=== PATIENT | female | born 2000 ===

== ENCOUNTER 2021-07-04 16:31 | Emergency (ER) | payer OTHER, SELFPAY ==
[2021-07-04 16:52] VITALS: BP 130/82; PULSE 110; O2SAT 98
[2021-07-04 16:59] VITALS: BP 118/78; PULSE 81; RESP 16; TEMP 37.1; O2SAT 100; BMI 26.1
[2021-07-04 16:59] LABS: Glucose, Whole Blood 123 mg/dL (60-115)
--- NOTE | 2021-07-04 17:52 | ED.SYNCOPE ---
HPI - Syncope General Chief Complaint: Seizure Stated Complaint: seizure Time Seen by Provider: 07/04/21 17:47 Source: patient Mode of arrival: ambulatory Limitations: no limitations History of Present Illness HPI narrative: Patient with history of palpitation episodes followed by near-syncope since 02/24 already been followed by respiratory care practitioner had Holter monitoring not life-threatening advised to do the Valsalva maneuver when this happens also patient has some anxiety lately today while at work patient has similar episode and she felt lightheaded with cold sweats and almost passed out along with palpitation no seizure activity patient back to normal and on arrival blood sugar was 123 blood pressure stable normal orthostatic Related Data Home Medications Medication Instructions Recorded Confirmed No Known Home Meds 11/14/20 11/14/20 Allergies Allergy/AdvReac Type Severity Reaction Status Date / Time No Known Drug Allergies Allergy Mild NONE Verified 11/14/20 08:36 [NO KNOWN DRUG ALLERGIES] Review of Systems Review of Systems: Yes all other systems are reviewed and are negative [facility] Past Medical History Medical History Family history of thyroid disease Family History Family History Father Arthritis Mother Arthritis Maternal Grandmother Heart disease Hypertension Paternal Grandfather Colon cancer Paternal Grandmother Heart disease Maternal Grandfather Stroke Social History Social History Alcohol intake: never Advance Directives: No Advance Directives Information Provided: Yes Physical Exam Vital Signs: Vital Signs: Last Vital Signs Temp 98.7 F 07/04/21 16:59 Pulse 100 07/04/21 18:09 Resp 16 07/04/21 16:59 BP 116/73 07/04/21 18:09 Pulse Ox 100 07/04/21 16:59 BMI result Body Mass Index 26.1 Appearance: Alert. Oriented X3. No acute distress. Eyes: No pallor or icterus ENT: Pharynx normal. Oral Mucosa moist Neck: Normal inspection. Neck supple. CVS: Normal heart rate and rhythm. Pulses normal. No murmur rub or gallop Respiratory: No respiratory distress. Equal air entry bilateral, Abdomen: Soft and nontender. Bowel sounds are present, Skin: Skin warm and dry. Normal skin color. Normal skin turgor. Extremities: No lower extremity edema. No calf tenderness Neuro: Oriented X 3. No motor deficit. No sensory deficit.No cerebellar signs , cranial nerves II-XII intact MDM - Syncope Lab Data Attestation: I reviewed the patient's lab results. Labs: Lab Results 07/04/21 Range/Units 16:55 POC Glucose 123 H (60-115) mg/dL ECG Data Attestation: I personally reviewed and interpreted this ECG as follows: Interpretation: Normal sinus rhythm heart rate 76 beats per minute normal interval normal axis no acute STT wave changes impression normal EKG Discharge Plan Discharge Clinical Impression: Vasovagal near syncope Patient Disposition: Home, Self-Care Instructions: Near Syncope (ED) Additional Instructions: Care as advised, drink plenty of fluids follow with respiratory care practitioner for palpitation episodes Prescriptions: No Action No Known Home Meds RF: 0
--- NOTE | 2021-07-04 17:54 | ECG_ITS ---
Test Reason : SYNCOPE Blood Pressure : / mmHG Vent. Rate : 076 BPM Atrial Rate : 076 BPM P-R Int : 108 ms QRS Dur : 072 ms QT Int : 392 ms P-R-T Axes : 022 072 050 degrees QTc Int : 441 ms Sinus rhythm with short NH Otherwise normal ECG When compared with ECG of 23-DEC-2019 14:41, No significant change was found Referred By: Silvio Castrejon Electronically Signed By:MARK KIM
[2021-07-04 18:06] VITALS: BP 115/71; PULSE 76
[2021-07-04 18:08] VITALS: BP 120/77; PULSE 88
[2021-07-04 18:09] VITALS: BP 116/73; PULSE 100
== END 2021-07-04 19:11 | disposition home or self-care (01) ==
PROVIDERS: Emergency Provider Internal Medicine
DX: R55 Syncope and collapse (principal); R56.9 Unspecified convulsions
CPT/HCPCS: 82947; 93005; 99283

== ENCOUNTER 2021-09-24 12:47 | Outpatient (REF) | payer OTHER, SELFPAY | END 2021-09-24 12:48 | disposition home or self-care (01) | LOC: HO.LAB 12:47 | PROVIDERS: PCP Internal Medicine; Visit Provider Internal Medicine | DX: Z83.49 Family history of other endocrine, nutritional and metabolic diseases (principal) | CPT/HCPCS: 36415; 84443 ==

== ENCOUNTER 2021-10-15 09:39 | Outpatient (REF) | payer OTHER, SELFPAY ==
--- NOTE | ~2021-10-15 | US_ITS ---
EXAMINATION: US THYROID CLINICAL INFORMATION: Dysphagia, unspecified. COMPARISON: None TECHNIQUE: Linear transducer grayscale and color Doppler examination with attention to the region of the thyroid. FINDINGS: SIZE: Measurements of the thyroid lobes and nodules are given in sagittal, anteroposterior and transverse dimensions respectively. Right Thyroid Lobe: 4.1 x 1.4 x 2.0 cm, volume 5.9 mL. Parenchyma: The gland echotexture is homogeneous. Thyroid vascularity is normal. Left Thyroid Lobe: 4.1 x 1.3 x 1.6 cm, volume 4.3 mL. Parenchyma: The gland echotexture is homogeneous. Thyroid vascularity is normal. Isthmus: 0.2 cm in maximum AP dimension. Estimated total number of nodules greater than or equal to 1 cm: 0. Hat Finisher nodules are described as follows: 1. Location: Left mid pole. Size: 0.4 x 0.2 x 0.3 cm, volume 0.012 mL. Nodule characteristics: Composition: Solid/almost completely solid (2). Echogenicity: Hypoechoic (2). Shape: Not taller than wide (0). Margins: Smooth (0). Echogenic Foci: None (0). ACR TI-RADS total points: 4 ACR TI-RADS category: 4 2. Location: Left lower pole. Size: 0.3 x 0.2 x 0.3 cm, volume 0.007 mL. Nodule characteristics: Composition: Solid/almost completely solid (2). Echogenicity: Hypoechoic (2). Shape: Not taller than wide (0). Margins: Smooth (0). Echogenic Foci: None (0). ACR TI-RADS total points: 4 ACR TI-RADS category: 4 NODES: No lymphadenopathy is seen in the tissue surrounding the thyroid gland. US/US thyroid IMPRESSION: Normal-sized thyroid gland. Two small left thyroid nodules. These do not meet TI RADS criteria for ultrasound follow-up or fine-needle aspiration. ACR TI-RADS RECOMMENDATION REFERENCE: Ultrasound-guided fine-needle aspiration, followup ultrasound, no further follow up. * TR1 (0 point) and TR 2 (2 points): No FNA or follow up * TR3 (3 points): FNA if more than or equal to 2.5 cm in maximum dimension, followup ultrasound in 1, 3 and 5 years if 1.5 to 2.4 cm in maximum dimension. * TR4 (4-6 points): FNA if more than or equal to 1.5 cm in maximum dimension, followup ultrasound in 1, 2, 3 and 5 years if 1 to 1.4 cm in maximum dimension. * TR5 (more than or equal to 7 points): FNA if more than or equal to 1 cm in maximum dimension, followup ultrasound every year for 5 years if 0.5 to 0.9 cm in maximum dimension. * TR3, TR4 or TR5 nodules that are below the size threshold for follow up receive no follow up.
== END 2021-10-15 09:40 | disposition home or self-care (01) ==
LOC: HO.US 09:39
PROVIDERS: Visit Provider Internal Medicine
DX: R13.10 Dysphagia, unspecified (principal)
CPT/HCPCS: 76536

== ENCOUNTER 2021-11-03 19:38 | Emergency (ER) | payer OTHER, SELFPAY ==
--- NOTE | ~2021-11-03 | CT_ITS ---
EXAMINATION: CT HEAD WITHOUT CONTRAST CT CERVICAL SPINE WITHOUT CONTRAST CLINICAL INFORMATION: Head injury. Persistent dizziness and forgetfulness COMPARISON: CT head dated 06/17/2011 TECHNIQUE: Multidetector CT imaging of the head and cervical spine was performed without the use of intravenous contrast. Multiplanar reformats are reviewed. This CT examination was performed using dose optimization techniques as appropriate, variously including the following: *Automated exposure control *Adjustment of mA and/or kV according to patient size (this includes techniques or standardized protocols for targeted exams where dose is matched to indication/reason for exam; i.e. extremities or head) *Use of iterative reconstruction technique DLP: 876 mGy-cm. FINDINGS: There is no evidence of acute intracranial hemorrhage or territorial infarction. No abnormal mass effect or midline shift is seen. [place] to white matter differentiation is well preserved. No extra-axial fluid collections are identified. The ventricles are normal in size. There is no abnormal attenuation within the brain parenchyma. The osseous structures and soft tissues are normal. The mastoid air cells and visualized portions of the paranasal sinuses are well-aerated. Atlantooccipital alignment is maintained. The vertebral bodies and posterior elements align normally. No acute fracture or subluxation. Vertebral body heights are maintained. No significant degenerative changes are appreciated. No central canal or foraminal narrowing. The paraspinal soft tissues are unremarkable. The imaged lung apices are clear CT/CT cervical spine wo con IMPRESSION: No acute intracranial pathology. No cervical spine fracture or malalignment.
--- NOTE | ~2021-11-03 | CT_ITS ---
EXAMINATION: CT HEAD WITHOUT CONTRAST CT CERVICAL SPINE WITHOUT CONTRAST CLINICAL INFORMATION: Head injury. Persistent dizziness and forgetfulness COMPARISON: CT head dated 06/17/2011 TECHNIQUE: Multidetector CT imaging of the head and cervical spine was performed without the use of intravenous contrast. Multiplanar reformats are reviewed. This CT examination was performed using dose optimization techniques as appropriate, variously including the following: *Automated exposure control *Adjustment of mA and/or kV according to patient size (this includes techniques or standardized protocols for targeted exams where dose is matched to indication/reason for exam; i.e. extremities or head) *Use of iterative reconstruction technique DLP: 876 mGy-cm. FINDINGS: There is no evidence of acute intracranial hemorrhage or territorial infarction. No abnormal mass effect or midline shift is seen. [place] to white matter differentiation is well preserved. No extra-axial fluid collections are identified. The ventricles are normal in size. There is no abnormal attenuation within the brain parenchyma. The osseous structures and soft tissues are normal. The mastoid air cells and visualized portions of the paranasal sinuses are well-aerated. Atlantooccipital alignment is maintained. The vertebral bodies and posterior elements align normally. No acute fracture or subluxation. Vertebral body heights are maintained. No significant degenerative changes are appreciated. No central canal or foraminal narrowing. The paraspinal soft tissues are unremarkable. The imaged lung apices are clear CT/CT head/brain wo con IMPRESSION: No acute intracranial pathology. No cervical spine fracture or malalignment.
[2021-11-03 19:40] VITALS: BP 118/76; PULSE 86; RESP 18; TEMP 36.9; O2SAT 100; BMI 23.1
[2021-11-03 20:12] LABS: Appearance Urine CLEAR; Color Urine YELLOW; Glucose Urine UA NEG (NEG); Leukocyte Esterase Urine 2+ (NEG); Nitrite Urine NEG (NEG); UACC Culture Trigger YES; Urine Blood NEG (NEG); Urine Ketones 5 MG/DL (NEG); Urine Protein NEG (NEG-TRACE)
[2021-11-03 20:41] LABS: Bacteria Urine 2+ /LPF; Squamous Epithelial Cell Urine 1+ /LPF; UACC CULT YES
[2021-11-03 21:12] LABS: Urine Pregnancy NEGATIVE (NEGATIVE)
[2021-11-03 21:13] LABS: UPreg QC Valid YES
--- NOTE | 2021-11-03 22:10 | ED.HEATRA ---
HPI - Head Injury General Chief complaint: Head Injury Stated complaint: head inj/concussion Time Seen by Provider: 11/03/21 20:25 History of Present Illness HPI Narrative: Patient is a 21-year-old female status post bumping her head complaining of pain to her head. Complaining of pain to her neck. Denies any chance of being . No fever no chills. No changes in vision. Patient from home. No focal weakness. No history of seizures. No history of being on blood thinners. Patient from home. Related Data Previous Rx's Medication Instructions Recorded ibuprofen 400 mg tablet 400 mg PO Q6H PRN #20 tab 11/03/21 Allergies Allergy/AdvReac Type Severity Reaction Status Date / Time No Known Drug Allergies Allergy Mild NONE Verified 11/14/20 08:36 [NO KNOWN DRUG ALLERGIES] Review of Systems Review of Systems: Positive head injury Yes all other systems are reviewed and are negative [facility] Past Medical History Attestation statement: The following information was validated with the patient. Medical History Family history of thyroid disease Family History Family History Father Arthritis Mother Arthritis Maternal Grandmother Heart disease Hypertension Paternal Grandfather Colon cancer Paternal Grandmother Heart disease Maternal Grandfather Stroke Social History Social History Alcohol intake: never Advance Directives: No Advance Directives Information Provided: Yes Physical Exam Vital Signs: Vital Signs: Last Vital Signs Temp 98.4 F 11/03/21 19:40 Pulse 86 11/03/21 19:40 Resp 18 11/03/21 19:40 BP 118/76 11/03/21 19:40 Pulse Ox 100 11/03/21 19:40 BMI result Body Mass Index 23.1 Appearance: Alert. Oriented X3. No acute distress. Eyes: Pupils equal, round and reactive to light. ENT: Pharynx normal. Neck: Normal inspection. Neck supple. No lymph nodes noted. No crepitus CVS: Normal heart rate and rhythm. Pulses normal. Normal S1 and S2 Respiratory: No respiratory distress. Breath sounds normal. No Wheezing. No rales Abdomen: Soft and nontender. No rigidity. No distention. good BS x4 Skin: Skin warm and dry. Normal skin color. Normal skin turgor. Extremities: No lower extremity edema. Neurovascular intact to all extremities. No Lacerations. No Rash Neuro: Oriented X 3. No motor deficit. No sensory deficit. Moving all extermities. No slurred speech MDM - Head Injury MDM Narrative Medical decision making narrative: Well-appearing no acute distress. CT scan of the head and C-spine were both grossly negative for any acute evidence of bleeding fracture or malalignment. Will have patient follow head injury precaution. test was negative. In stable condition. Lab Data Labs: Lab Results 11/03/21 11/03/21 Range/Units 19:58 19:58 Urine Color YELLOW Urine Appearance CLEAR Urine pH 7.0 (5.0-8.0) Ur Specific [place] 1.020 (1.005-1.025) Urine Protein NEG (NEG-TRACE) MG/DL Urine Glucose (UA) NEG (NEG) MG/DL Urine Ketones 5 (NEG) MG/DL Urine Blood NEG (NEG) Urine Nitrite NEG (NEG) Ur Leukocyte Esterase 2+ H (NEG) Urine RBC 1-4 (0) /HPF Urine WBC 5-9 H (0-4) /HPF Ur Squamous Epith Cells 1+ /LPF Urine Bacteria 2+ /LPF Urine Test NEGATIVE (NEGATIVE) Discharge Plan Discharge Clinical Impression: Closed head injury Patient Disposition: Home, Self-Care Instructions: Head Injury (ED) Prescriptions: New ibuprofen 400 mg tablet 400 mg PO Q6H PRN (Reason: pain) Qty: 20 0RF Referrals: Physician,Nonstaff [Primary Care Provider] - (Follow-up with her doctor on outpatient basis. Motrin for pain. You may take 1-2 tablets of 200 mg Motrin every 4-6 hours.)
== END 2021-11-03 22:34 | disposition home or self-care (01) ==
PROVIDERS: Emergency Provider Emergency Medicine Emergency Medical Services
DX: S06.0X9A Concussion with loss of consciousness of unspecified duration, initial encounter (principal); G44.309 Post-traumatic headache, unspecified, not intractable; M54.2 Cervicalgia; X58.XXXA Exposure to other specified factors, initial encounter; Y93.9 Activity, unspecified; Y92.9 Unspecified place or not applicable; Y99.9 Unspecified external cause status; Z79.899 Other long term (current) drug therapy
CPT/HCPCS: 70450; 72125; 81001; 81025; 87086; 99283; 99284

== ENCOUNTER 2021-11-22 13:04 | Outpatient (REF) | payer OTHER, SELFPAY ==
--- NOTE | ~2021-11-22 | MR_ITS ---
EXAMINATION: MRI OF THE BRAIN WITHOUT CONTRAST CLINICAL INFORMATION: New persistent daily headache. COMPARISON: CT scan of the head 11/03/2021.. TECHNIQUE: MRI of the brain was obtained using routine sequences without contrast. FINDINGS: No diffusion abnormalities are identified to suggest an acute or subacute infarct. No mass effect or midline shift is seen. The ventricles and sulci appear normal. Brain parenchymal signal is unremarkable. No extra-axial fluid collections are seen. The brainstem and cerebellum are normal. No pathologic magnetic susceptibility artifact is identified on the gradient refocused acquisition. The craniovertebral junction, marrow signal, and midline structures are normal. The major intracranial flow-voids at the level of the [place] are preserved. The dural venous sinus flow-voids are maintained. The nasal septum is deviated to the right and there is a prominent right-sided bony nasal septal spur. The mastoid air cells and paranasal sinuses are well-aerated. MR/MR head/brain wo con IMPRESSION: 1. There are no acute bleeds or infarcts. No masses are demonstrated.
== END 2021-11-22 13:05 | disposition home or self-care (01) ==
LOC: HO.MRI 13:04
PROVIDERS: Visit Provider Internal Medicine
DX: S06.0X9A Concussion with loss of consciousness of unspecified duration, initial encounter (principal); G44.52 New daily persistent headache (NDPH)
CPT/HCPCS: 70551

== ENCOUNTER 2022-12-26 09:48 | Outpatient (REF) | payer OTHER, SELFPAY ==
[2022-12-26 10:02] LABS: MANUAL DIFF FLAG NO
[2022-12-26 10:42] LABS: Basophils Percent Auto 0.6 % (0-2); Eosinophils Percent Auto 0.8 % (0-4); Hematocrit 40.1 % (37.0-47.0); Hemoglobin 13.3 g/dl (12.0-16.0); Imm Gran Abs Auto 0.01 X10*3/uL (0.00-0.03); Imm Gran Pct Auto 0.2 % (0.0-0.4); Lymphocytes Absolute Auto 1.7 X10*3/uL (1.2-4.9); Mean Corpuscular HGB Conc 33.2 g/dl (31.0-35.0); Mean Corpuscular Hemoglobin 30.5 pg (27.0-33.0); Mean Platelet Volume 10.9 fL (9.4-12.3); Monocytes Absolute Auto 0.3 X10*3/uL (0.1-1.2); Monocytes Percent Auto 6.3 % (2-11); Neutrophils Absolute Auto 2.7 x10*3/uL (2.0-8.3); Neutrophils Percent Auto 57.1 % (45-73); Platelet Count 278 X10*3/uL (160-400); Red Blood Count 4.36 X10*6/uL (4.20-5.50); Red Cell Distribution Width 12.6 % (11.0-16.0); White Blood Count 4.8 X10*3/uL (4.8-10.8)
[2022-12-26 11:32] LABS: Alanine Aminotransferase 15 U/L (0-31); Albumin Level 4.3 g/dL (3.5-5.0); Alkaline Phosphatase 68 U/L (39-117); Anion Gap 11 (12-20); Aspartate Amino Transferase 26 U/L (5-31); Bilirubin Total 0.6 mg/dL (0.0-1.0); Blood Urea Nitrogen 10 mg/dL (9-16); Calcium 9.2 mg/dL (8.4-10.2); Carbon Dioxide 29 mmol/L (22-29); Chloride 105 mmol/L (96-108); Estimated Glomerular Filt Rate > 60; Glucose Fasting 93 mg/dL (60-99); Iron 106 mcg/dL (30-160); Percent Iron Saturation 38 % (15-50); Potassium 3.7 mmol/L (3.3-5.1); Sodium 141 mmol/L (135-145); Total Iron Binding Capacity 278 mcg/dL (228-428); Total Protein 7.1 g/dL (6.5-8.0); Unsaturated Iron Binding 172 ug/dL
[2022-12-26 11:35] LABS: Thyroid Stimulating Hormone 1.76 uIU/mL (0.32-4.0)
[2022-12-26 11:57] LABS: Folate 8.7 ng/mL (> or = 4.0); Vitamin B12 465 pg/mL (200-900)
== END 2022-12-26 09:49 | disposition home or self-care (01) ==
LOC: HO.LAB 09:48
PROVIDERS: PCP Internal Medicine; Visit Provider Internal Medicine
DX: E53.8 Deficiency of other specified B group vitamins (principal); D64.9 Anemia, unspecified; G44.52 New daily persistent headache (NDPH); Z83.49 Family history of other endocrine, nutritional and metabolic diseases
CPT/HCPCS: 36415; 80053; 82607; 82746; 83540; 84443; 85025

== ENCOUNTER 2023-06-15 16:18 | Emergency (ER) | payer OTHER, SELFPAY ==
[2023-06-15 16:25] VITALS: BP 111/81; PULSE 101; RESP 18; TEMP 36.6; O2SAT 99; BMI 25.7
--- NOTE | 2023-06-15 16:31 | ED_ITS ---
HPI - General Adult General Chief complaint: Allergic Reaction Stated complaint: ?ALLERGIC REACTION Time Seen by Provider: 06/15/23 16:32 Source: patient Mode of arrival: ambulatory Limitations: no limitations History of Present Illness HPI narrative: 23 yold female presents to the ED for bilateral eyebrow redness, itchiness, and swelling after tainting eyebrows. Patient denies any lip swelling, sensation of throat closing, chest pain, shortness of breath, eye pain, change/loss of vision, contact use, or recent trauma. Related Data Previous Rx's Medication Instructions Recorded cephalexin 500 mg capsule 500 mg PO QID 7 days #28 caps 06/15/23 diphenhydramine HCl 25 mg capsule 25 mg PO TID PRN allergic reaction 06/15/23 (Benadryl) 7 days #21 caps famotidine 20 mg tablet (Pepcid) 20 mg PO BID 5 days #10 tabs 06/15/23 prednisone 20 mg tablet 40 mg (2 x 20 mg) PO DAILY 5 days 06/15/23 #10 tabs Allergies Allergy/AdvReac Type Severity Reaction Status Date / Time No Known Drug Allergies Allergy Mild NONE Verified 06/15/23 16:25 [NO KNOWN DRUG ALLERGIES] Review of Systems 2 Review of Systems: bilateral eye brows redness, itchiness, and swelling after tainting eyebrows [facility] Past Medical History Medical History (Updated 06/16/23 @ 00:01 by Uche Haddad) Hospital discharge follow-up New daily persistent headache Closed head injury with concussion Family history of thyroid disease Surgical History No pertinent past surgical history Family History Family History Father Arthritis Mother Arthritis Maternal Grandmother Heart disease Hypertension Paternal Grandfather Colon cancer Paternal Grandmother Heart disease Maternal Grandfather Stroke Social History Social History Housing: Apartment Alcohol intake: never Patient Tobacco Use Status: Never used Tobacco e-Cigarette/Vaping Use: Never Used Second Hand Smoke Exposure: No Advance Directives: No Advance Directives Information Provided: No service: No Current occupational status: employed Current occupational exposures/hazards: No Cognitive needs: No Hearing needs: No Vision needs: Yes Physical Exam ED Vital Signs: Vital Signs - 24 hr 06/15/23 16:25 Temperature 97.8 F Pulse Rate 101 H Respiratory Rate 18 Blood Pressure 111/81 Pulse Oximetry 99 Oxygen Delivery Method Room Air BMI result Body Mass Index 25.7 Const General: cooperative, healthy appearing, comfortable, no acute distress, well developed, alert and awake Orientation/consciousness: oriented to person, oriented to place, oriented to time and patient oriented x3 HENMT Other: negative for lip swelling, uvula swelling, drooling, facial swelling, or neck swelling. negative trismus Head: Yes normal to inspection, Yes No palpable skull fracture present, Yes normocephalic and Yes atraumatic Throat: Yes posterior oropharynx normal, Yes tonsils normal and Yes uvula midline Eyes Other: negative for photophobia, eye discharge, sclera/conjuctiva erythma, foreing body, or corneal abrasison Visual Christiansen: normal visual christiansen by confrontation Alignment and Position: alignment normal Eyelids: Yes eyelid abnormality (slight bilateral upper eyelid swelling only. ) Conjunctivae: conjunctivae normal Sclerae: sclerae normal Eyes/upper lids images: 2 1. positive itchy erythema. negative for tenderness, mass, fluctulnace, crepitus, ecchymosis, abrasions, or lacerations. negative for vesicular lesions. 2. positive itchy erythema. negative for tenderness, mass, fluctulnace, crepitus, ecchymosis, abrasions, or lacerations. negative for vesicular lesions. Neck Neck: Yes normal visual inspection, Yes full ROM, Yes no lymphadenopathy, Yes no meningeal signs, Yes trachea midline and Yes supple Chest Chest palpation & inspection: normal inspection of the chest and normal palpation of entire chest wall Resp Effort & Inspection: normal respiratory effort and able to speak in complete sentences Auscultation: clear to auscultation bilaterally Cardio Jugular venous distension: no JVD Heart sounds: S1 normal heart sound present and S2 normal heart sound present GI Inspection: Yes normal to inspection and No abdominal wall ecchymosis Palpation (GI): Soft to palpation, not firm, nontender, no guarding and not rigid General: Yes no CVA tenderness Back/Spine/Pelvis Back: no CVA tenderness and No back tenderness Skin Other: allergic reaction on eyebrows Neuro General: oriented to person, oriented to place, oriented to time, patient oriented x3, gait normal, tone normal, moves all extremities, Normal light touch and pain sensation, no meningeal signs and no focal motor deficits Extrem General: Yes normal to inspection, Yes full ROM and Yes capillary refill normal Psych Appearance: grossly normal, well kempt and not disheveled Course Course Course Narrative: RME: bilateral eyebrow redness, itchiness, and tinted eyebrows last night Medical Decision Making Medical Decision Making [facility] Narrative: 23 yold female with eyebow allergic reaction after tinting eyebrows. Patient states after tinting she states itchy redness on eyebrows. patient denies any facial swelling, lip swelling, throat closing, chest pain, or shortness of breath. Patient denies any eye pain or change in vision. Patient discharged with benadryl, prednisone, and pepcid. Unlikely cellulitis, but will discharge with cephalexin. Not suspecting orbital cellulitis, anyphylaxis, osteomyelitits, corneal abrasions, corneal ulcer, or globe rupture. Differential Diagnosis Differential Diagnoses: The differential diagnosis associated with the presentation includes (allergic reaction, cellulitis, contact dermatitis) Admission/Observation Consideration of admission/observation: Escalation of care including admission/observation considered Independent Historian Clinical information obtained from an independent historian. History obtained from or confirmed by: Parent External Record Review External record reviewed: Other (Prior Visits) Prescription Management I considered prescription management with: Antibiotic and Other (benadryl, pepcid, prednisone) Discharge Plan Discharge Clinical Impression: Allergic reaction, Cellulitis Patient Disposition: Home, Self-Care Instructions: Contact Dermatitis (ED), Cellulitis (ED), General Allergic Reaction (ED) Additional Instructions: History and physical exam most likely indicates allergic reaction from tinting you're eyebrows, but also will be discharged with antiobitcs for possible cellulitis. Return to the ED immediately for lip swelling, shortness of breath, sensation of throat closing, facial swelling, increased swelling of eyebrows, drooling worsening rash, chest pain, shortness of breath, loss of vision, eye pain, change in vision, or any other concerning symptoms. Please follow-up with primary care provider Prescriptions: New prednisone 20 mg tablet 40 mg PO DAILY 5 Days Qty: 10 0RF diphenhydramine HCl [Benadryl] 25 mg capsule 25 mg PO TID PRN (Reason: allergic reaction) 7 Days Qty: 21 0RF famotidine [Pepcid] 20 mg tablet 20 mg PO BID 5 Days Qty: 10 0RF cephalexin 500 mg capsule 500 mg PO QID 7 Days Qty: 28 0RF Stand Alone Forms: Work/School Release Interventions: ED Discharge Assessment Last Done: 06/15/23 16:47 Discharge Date/Time: 06/15/23 16:48 Print Language: Swedish
== END 2023-06-15 16:48 | disposition home or self-care (01) ==
PROVIDERS: Emergency Provider Internal Medicine
DX: L03.211 Cellulitis of face (principal); L29.9 Pruritus, unspecified
CPT/HCPCS: 99282

== ENCOUNTER 2023-07-11 08:30 | Outpatient (REF) | payer OTHER, SELFPAY | END 2023-07-11 08:31 | disposition home or self-care (01) | LOC: HO.SH 08:30 | PROVIDERS: Visit Provider Internal Medicine | DX: Z01.118 Encounter for examination of ears and hearing with other abnormal findings (principal); H93.293 Other abnormal auditory perceptions, bilateral | CPT/HCPCS: 92557; 92567 ==

== ENCOUNTER 2024-07-16 15:26 | Outpatient (AMB) | payer OTHER, SELFPAY ==
--- NOTE | 2024-07-16 15:29 | A.OFFPC_ITS ---
Vital Signs 07/16/24 15:30 Height 5 ft 3 in Weight 154 lb 4 oz BMI 27.3 BP 104/70 Blood Pressure Location Lt brachial Position Sitting Pulse 93 Pulse Source Pulse Oximeter Pulse Oximetry (%) 97 Oxygen Delivery Method Room Air Intake Visit Reasons: Bad headache Intake Note: Patient is here today for a physical. Accompanied by: Self / Same As Patient Allergies No Known Drug Allergies [NO KNOWN DRUG ALLERGIES] Allergy (Mild, Verified 07/16/24 15:42) NONE Medication List - Last Reconciled 07/16/24 by Afia Duarte MD No Known Home Meds Tobacco use date assessed: 07/16/24 Dental Screening Dental Screen Date: 07/16/24 Did you have a dental visit in the last 12 months?: Yes Did you have a dental problem in the last 6 months where you did not have access to dental care?: No Was dental information given to patient?: Patient has dentist HPI HPI Comments History of Present Illness Details The patient is a 24-year-old female presenting for her physical exam. She complaints of a history of dry, flaking patches on her scalp and face. She noticed the initial occurrence over a year and a half ago, with a dry patch on her scalp that progressively worsened. A chair post machine operator suggested these patches might be psoriasis after noticing the size and the bleeding tendency on the scalp. The lesions have since expanded to her eyebrows and may be spreading to her face. The patient uses a shampoo and cortisone cream that provides some relief of symptoms. There is no mention of lesions on the elbows or other parts of the body. She denies any specific inciting factors or previous interventions apart from topical treatments. - Inquiry about Tdap vaccination status; last received as a teenager; information shared about typical 10-year vaccination interval. - Offered a flu shot which was declined by the patient. [facility] Medical History Hospital discharge follow-up New daily persistent headache Closed head injury with concussion Family history of thyroid disease Surgical History No pertinent past surgical history Family History Father Arthritis Mother Arthritis Maternal Grandmother Heart disease Hypertension Paternal Grandfather Colon cancer Paternal Grandmother Heart disease Maternal Grandfather Stroke Social History Housing: Apartment Alcohol intake: never Patient Tobacco Use Status: Never used Tobacco e-Cigarette/Vaping Use: Never Used Second Hand Smoke Exposure: No service: No Current occupational status: employed Current occupational exposures/hazards: No Cognitive needs: No Hearing needs: No Vision needs: Yes Questionnaire PHQ-9 Over the last 2 weeks, how often have you been bothered by any of the following problems? 1. Little interest or pleasure in doing things: not at all 2. Feeling down, depressed, or hopeless: not at all 3. Trouble falling or staying asleep, or sleeping too much: not at all 4. Feeling tired or having little energy: not at all 5. Poor appetite or overeating: not at all 6. Feeling bad about yourself - or that you are a failure or have let yourself or your family down: not at all 7. Trouble concentrating on things, such as reading the newspaper or watching television: not at all 8. Moving or speaking so slowly that other people could have noticed. Or the opposite - being so fidgety or restless that you have been moving around a lot more than usual: not at all 9. Thoughts that you would be better off or of hurting yourself in some way: not at all Total score: 0 Depression Screening Interpretation: Negative Depression Screening Done: Yes 47878 - PHQ-9 Billing: Yes Source: Developed by Drs. Adis Murry, Kerri Ordaz, Livan Murphy and colleagues, with an educational simeon from [employer]. Thrive Questionnaire Date Thrive assessed: 07/16/24 I am a: Patient What is your living situation today?: I have a steady place to live Within the past 12 months, did the food you bought not last and you didn't have the money to get more?: Never true Within the past 12 months, did you worry whether your food would run out before you got money to buy more?: Never true Do you have trouble paying for medicines?: No Do you have trouble getting transportation to medical appointments?: No Do you have trouble paying your heating and electricity bill?: No Do you have trouble taking care of your child, family member or friend?: No Do you have trouble with day-to-day activities such as bathing, preparing meals, shopping, managing finances, etc.?: No Are you currently unemployed and looking for a job?: No Are you interested in more education?: No Please select the resources that you would like help with: None Currently or been in a relationship where the following occur: No concerns reported THRIVE Score: 0 AUDIT C Alcohol Use Questionnaire (AUDIT-C) 1. How often do you have a drink containing alcohol?: Never 3. How often do you have six or more drinks on one occasion?: Never Total Score: 0 Score Reviewed/Action Taken: No ROSENDO-7 AMB Questionnaire ROSENDO-7 Date ROSENDO - 7 assessed: 07/16/24 Feeling nervous, anxious, or on edge: 0 = Not at all Not being able to stop or control worryin = Not at all Worrying too much about different things: 0 = Not at all Trouble relaxin = Not at all Being so restless that it is hard to sit still: 0 = Not at all Becoming easily annoyed or irritable: 0 = Not at all Feeling afraid as if something awful might happen: 0 = Not at all Total ROSENDO-7 score (0-4 normal; 5-9 mild; 10-14 moderate; 15-21 severe): 0 Source: Developed by Drs. Adis Murry, Kerri Ordaz, Livan Murphy and colleagues, with an educational simeon from [employer]. ROSENDO-7 Assessment Billing ROSENDO-7 Assessment Tool: ROSENDO-7 Assessment 17086 Review of Systems Const Details: - Skin: Reports progression of flaking patches from the scalp to the eyebrows and possibly to the face. Physical exam (Primary Care) Vital Signs: Last Vital Signs Pulse 93 07/16/24 15:30 BP 104/70 07/16/24 15:30 Pulse Ox 97 07/16/24 15:30 Oxygen Delivery Method Room Air 07/16/24 15:30 BMI result Body Mass Index 27.3 Tobacco/Smoking Status: Tobacco use Status Tobacco use date assessed 07/16/24 07/16/24 15:38 Patient Tobacco Use Status Never used Tobacco 07/16/24 15:30 e-Cigarette/Vaping Use Never Used 07/16/24 15:30 PHQ-9: PHQ-9 Score PHQ-9: Total score 0 07/16/24 15:43 Depression Screening Interpretation: Negative Thrive Assessment: Date of Thrive Assessment Date Thrive assessed 07/16/24 07/16/24 15:38 Currently or been in a relationship where the following occur: No concerns reported Const Other: General: Cooperative, healthy appearing, comfortable, no acute distress and well developed Orientation: Patient oriented x3 Limitations: No limitations Head: Normal to inspection, but patient reports dry patches on the scalp, possibly psoriasis Ears: Hearing grossly normal bilaterally Nose: Normal external nose present Face and sinus: Normal facial exam, but patient reports dry patches possibly extending to eyebrows and face Eyes: Appearance normal, both eyes and all related structures Neck: Normal visual inspection and Yes full ROM Respiratory: Normal respiratory effort and able to speak in complete sentences. Clear to auscultation bilaterally Cardiovascular: Regular rate and rhythm. Normal S1 and S2 GI: Normal to inspection. Soft to palpation and nontender Skin: Dry patches on scalp, possibly psoriasis; no rashes or lesions noted elsewhere Neuro: Patient oriented x3 Extremities: Normal to inspection Office Procedures Flu Questionnaire Does the patient have a severe egg allergy?: No Immunizations Fluarix Triv [id number] (PF) 45 mcg (15 mcg x 3)/0.5 mL IM syringe Performing Provider: Afia Duarte MD Performing [facility] [place] [facility] Documented (not given) by: BLAIR Birch on 07/16/24 15:30 Reason Not Given: Patient Refused Coding Level of Care Code Est Pt Level 3 (41883) Est Pt Prev Care 18-39y(87636) Diagnoses Physical exam Z00.00 Psoriasis L40.9 Additional Codes ROSENDO-7 Assessment Billing - ROSENDO-7 Assessment Tool: ROSENDO-7 Assessment 94217 ([id number]) PHQ-9 - 98729 - PHQ-9 Billing: Yes ([id number]) Time Spent (min) 31 Assessment & Plan Assessment & Plan (1) Physical exam: Code(s): Z00.00 - Encounter for general adult medical examination without abnormal findings Category: Medical (2) Psoriasis: Code(s): L40.9 - Psoriasis, unspecified Category: Medical Plan - Refer patient to dermatology for further evaluation of psoriasis. Patient was informed and verbally consented to the use of an ambient scribe for clinic note documentation during this visit. I discussed that the scalp and facial lesions are likely due to psoriasis, an autoimmune skin condition. The symptomatic management includes using medicated shampoos and topical corticosteroids, which the patient is already utilizing. I explained the role of dermatology in addressing the condition more comprehensively and provided a referral to a engineering project designer in [place]. We reviewed the importance of follow-up for symptomatic lesions and encouraged her ongoing care to mitigate worsening or spread. Orders: Orders Influenza [id number] Immunization Today Z23 - Encounter for immunization Comprehensive [place]. Panel Fast Today Z00.00 - Encounter for general adult medical examination without abnormal findings Complete Blood Count Auto Diff Today L40.9 - Psoriasis, unspecified Lipid Panel Today Z00.00 - Encounter for general adult medical examination without abnormal findings Referrals Dermatology Referral L40.9 - Psoriasis, unspecified Patient Instructions: - Follow up with the dermatology referral for evaluation of psoriasis. - Continue use of prescribed shampoo and cortisone cream as needed for symptom relief. - Monitor for any new or worsening lesions and report accordingly. - Maintain a health-focused routine as per her desire for personal health impr ovement. - Clarify and update vaccination records, especially Tdap.
[2024-07-16 15:30] VITALS: BP 104/70; PULSE 93; O2SAT 97; BMI 27.3
--- OUTSIDE RECORDS SUMMARY | 2024-07-16 16:31 | XMS_ITS | Continuity of Care Document ---
Author Organization [facility] Address [address] [place] [id number] Care Team Providers Care Title Closer Name Role Phone Not on Staff, PCP Primary Care Physician Unavail able Encounter [facility] Date(s): 06/08/24 - 07/08/24 [facility] [address] [id number]- Encounter Type: Triage Allergies, Adverse Reactions, Alerts No Known Allergies Social History Social History Type Response Smoking Status Never (less than 100 in lifetime) entered on: 12/19/20 Sex Sex Representation Female (finding) Patient Care team information Care Team Personnel Name: Not on Staff, PCP Position: [facility] Physician (General Medicine) Member Role: PCP Care Team Related Persons Name: [place] Insurance Providers Guarantor name: [facility] Health Plan Information #: 1 Payer: [employer] PPO Member Number: NA Policy Number: NA Group Number: NA
== END 2024-07-16 15:55 | disposition home or self-care (01) ==
PROVIDERS: PCP Internal Medicine; Visit Provider Internal Medicine
DX: Z00.00 Encounter for general adult medical examination without abnormal findings (principal); L40.9 Psoriasis, unspecified; Z23 Encounter for immunization

== ENCOUNTER → 2024-07-16 15:26 | Outpatient (BNVA) | payer OTHER, SELFPAY | PROVIDERS: PCP Internal Medicine; Visit Provider Internal Medicine | DX: Z00.00 Encounter for general adult medical examination without abnormal findings (principal); L40.9 Psoriasis, unspecified; Z28.21 Immunization not carried out because of patient refusal | CPT/HCPCS: 96127 ==

== ENCOUNTER 2024-08-02 12:02 | Outpatient (REF) | payer OTHER, SELFPAY ==
[2024-08-02 12:13] LABS: MANUAL DIFF FLAG NO
[2024-08-02 12:27] LABS: Basophils Percent Auto 0.8 % (0-2); Eosinophils Percent Auto 0.8 % (0-4); Hematocrit 41.8 % (37.0-47.0); Hemoglobin 13.6 g/dl (12.0-16.0); Imm Gran Abs Auto 0.01 X10*3/uL (0.00-0.03); Imm Gran Pct Auto 0.2 % (0.0-0.4); Lymphocytes Absolute Auto 1.7 X10*3/uL (1.2-4.9); Lymphocytes Percent Auto 34.1 % (20-40); Mean Corpuscular HGB Conc 32.5 g/dl (31.0-35.0); Mean Corpuscular Hemoglobin 29.1 pg (27.0-33.0); Mean Corpuscular Volume 89.5 fL (80.0-98.0); Mean Platelet Volume 10.6 fL (9.4-12.3); Monocytes Absolute Auto 0.3 X10*3/uL (0.1-1.2); Monocytes Percent Auto 5.4 % (2-11); Neutrophils Absolute Auto 2.9 x10*3/uL (2.0-8.3); Neutrophils Percent Auto 58.7 % (45-73); Platelet Count 274 X10*3/uL (160-400); Red Blood Count 4.67 X10*6/uL (4.20-5.50); Red Cell Distribution Width 13.2 % (11.0-16.0)
[2024-08-02 12:51] LABS: Alanine Aminotransferase 26 U/L (0-31); Albumin Level 4.3 g/dL (3.5-5.0); Alkaline Phosphatase 69 U/L (39-117); Anion Gap 12 (12-20); Aspartate Amino Transferase 39 U/L (5-31); Bilirubin Total 0.3 mg/dL (0.0-1.0); Blood Urea Nitrogen 10 mg/dL (9-16); Calcium 8.6 mg/dL (8.4-10.2); Carbon Dioxide 27 mmol/L (22-29); Chloride 107 mmol/L (96-108); Cholesterol 153 mg/dL (<200); Estimated Glomerular Filt Rate > 60; Glucose Fasting 85 mg/dL (60-99); HDL Cholesterol 38 mg/dL (>40); LDL Cholesterol Calculated 103 mg/dL (<100); Sodium 142 mmol/L (135-145); Total Protein 7.3 g/dL (6.5-8.0); Triglycerides 64 mg/dL (<150)
== END 2024-08-02 12:03 | disposition home or self-care (01) ==
LOC: HO.LAB 12:02
PROVIDERS: PCP Internal Medicine; Visit Provider Internal Medicine
DX: Z00.00 Encounter for general adult medical examination without abnormal findings (principal); L40.9 Psoriasis, unspecified
CPT/HCPCS: 36415; 80053; 80061; 85025